=== PATIENT | male | born 1965 | race Two or more races ===

== ENCOUNTER 2017-09-15 00:47 | Emergency (ER) | payer OTHER ==
[~2017-09-15] VITALS: Ht 177.8 cm; Wt 76.2 kg
[~2017-09-15 00:47] MED LIST: AZITHROMYCIN250 MG PO; CEFADROXIL500 MG PO; CLONAZEPAM0.5 MG PO; DICLOFENAC POTA50 MG; GABAPENTIN100 MG; TUSSI-PRES LIQ120 ML PO
[2017-09-15] MEDS ORDERED: CALTRATE 600+D1 EACH PO (03:34)
== END 2017-09-15 03:40 | disposition home or self-care (01) ==
LOC: ER 00:47
DX: F41.9 Anxiety disorder, unspecified (principal); T47.2X5A Adverse effect of stimulant laxatives, initial encounter; Y92.89 Other specified places as the place of occurrence of the external cause; E83.51 Hypocalcemia

== ENCOUNTER 2018-10-13 21:45 | Emergency (ER) | payer OTHER ==
[~2018-10-13] VITALS: Ht 177.8 cm; Wt 80.7 kg
[~2018-10-13 21:45] MED LIST changes: +CALTRATE 600+D1 EACH PO
[2018-10-14] MEDS ORDERED: SKELAXIN800 MG PO (00:16)
[2018-10-14] MEDS ORDERED: NABUMETONE750 MG PO (00:16)
[2018-10-14] MEDS ORDERED: MEDROLPACK PO (00:16)
== END 2018-10-14 00:54 | disposition home or self-care (01) ==
LOC: ER 21:45
DX: M77.12 Lateral epicondylitis, left elbow (principal)

== ENCOUNTER 2020-02-25 21:40 | Emergency (ER) | payer OTHER ==
[~2020-02-25] VITALS: Ht 177.8 cm; Wt 77.1 kg
[~2020-02-25 21:40] MED LIST changes: +MEDROLPACK PO; +NABUMETONE750 MG PO; +SKELAXIN800 MG PO
== END 2020-02-25 23:46 | disposition home or self-care (01) ==
LOC: ER 21:40
DX: H92.01 Otalgia, right ear (principal)

== ENCOUNTER 2021-01-01 11:45 | Outpatient (CLI) | payer OTHER | END 2021-01-01 12:00 | disposition home or self-care (01) | LOC: MRI 11:45 | PROVIDERS: ATTEND Orthopaedic Surgery | DX: S83.242A Other tear of medial meniscus, current injury, left knee, initial encounter (principal); M25.761 Osteophyte, right knee; M25.562 Pain in left knee | CPT/HCPCS: 73721 ==

== ENCOUNTER 2021-01-05 13:24 | Emergency (ER) | payer OTHER ==
[~2021-01-05] VITALS: Ht 177.8 cm; Wt 79.8 kg
[2021-01-05] MEDS ORDERED: PERCOCET 5-3251 EACH PO (16:32)
[2021-01-05] MEDS ORDERED: CYCLOBENZAPRINE10 MG PO (16:32)
[2021-01-05] MEDS ORDERED: DICLOFENAC POTA50 MG PO (16:32)
== END 2021-01-05 16:44 ==
LOC: ER 13:24
DX: S20.211A Contusion of right front wall of thorax, initial encounter (principal); S40.021A Contusion of right upper arm, initial encounter; M79.601 Pain in right arm; W18.09XA Striking against other object with subsequent fall, initial encounter; Y93.89 Activity, other specified; Y92.091 Bathroom in other non-institutional residence as the place of occurrence of the external cause; Y99.8 Other external cause status

== ENCOUNTER 2021-08-29 14:20 | Emergency (ER) | payer OTHER ==
[~2021-08-29] VITALS: Ht 177.8 cm; Wt 78.0 kg
[~2021-08-29 14:20] MED LIST changes: +CYCLOBENZAPRINE10 MG PO; +DICLOFENAC POTA50 MG PO; +PERCOCET 5-3251 EACH PO
== END 2021-08-29 18:39 | disposition home or self-care (01) ==
LOC: ER 14:20
DX: R07.89 Other chest pain (principal)

== ENCOUNTER 2022-02-24 15:53 | Emergency (ER) | payer OTHER ==
[~2022-02-24] VITALS: Ht 177.8 cm; Wt 77.1 kg
== END 2022-02-24 23:30 | disposition home or self-care (01) ==
LOC: ER 15:53
DX: T17.208A Unspecified foreign body in pharynx causing other injury, initial encounter (principal); X58.XXXA Exposure to other specified factors, initial encounter; Y93.9 Activity, unspecified; Y92.9 Unspecified place or not applicable; Y99.9 Unspecified external cause status

== ENCOUNTER 2022-02-25 18:59 | Emergency (ER) | payer OTHER ==
[~2022-02-25] VITALS: Ht 177.8 cm; Wt 77.1 kg
[2022-02-26] MEDS ORDERED: PEPCID40 MG PO (03:04)
[2022-02-26] MEDS ORDERED: MIRALAX510 GM PO (03:04)
[2022-02-26] MEDS ORDERED: PROTONIX40 M1 PO (03:04)
== END 2022-02-25 20:08 | disposition home or self-care (01) ==
LOC: ER 18:59
DX: R07.0 Pain in throat (principal)

== ENCOUNTER 2022-02-26 00:34 | Emergency (ER) | payer OTHER ==
[~2022-02-26] VITALS: Ht 177.8 cm; Wt 72.6 kg
[2022-02-26] MEDS ORDERED: PEPCID40 MG PO (03:04)
[2022-02-26] MEDS ORDERED: PROTONIX40 M1 PO (03:04)
[2022-02-26] MEDS ORDERED: MIRALAX510 GM PO (03:04)
== END 2022-02-26 03:17 ==
LOC: ER 00:34
DX: K21.9 Gastro-esophageal reflux disease without esophagitis (principal)

== ENCOUNTER 2022-04-26 14:52 | Emergency (ER) | payer OTHER ==
[~2022-04-26] VITALS: Ht 177.8 cm; Wt 77.1 kg
[~2022-04-26 14:52] MED LIST changes: +MIRALAX510 GM PO; +PEPCID40 MG PO; +PROTONIX40 M1 PO
[2022-04-26] MEDS ORDERED: LOSARTAN POTASS25 MG PO (15:23)
[2022-04-26] MEDS ORDERED: ATORVASTATIN CA20 MG PO (15:23)
== END 2022-04-26 19:13 | disposition home or self-care (01) ==
LOC: ER 14:52
DX: B34.9 Viral infection, unspecified (principal); R51.9 Headache, unspecified; I10 Essential (primary) hypertension; Z20.822 Contact with and (suspected) exposure to COVID-19

== ENCOUNTER 2022-06-02 15:47 | Emergency (ER) | payer OTHER ==
[~2022-06-02] VITALS: Ht 177.8 cm; Wt 77.1 kg
[~2022-06-02 15:47] MED LIST changes: +ATORVASTATIN CA20 MG PO; +LOSARTAN POTASS25 MG PO
== END 2022-06-02 19:40 | disposition home or self-care (01) ==
LOC: ER 15:47
DX: K21.9 Gastro-esophageal reflux disease without esophagitis (principal); I10 Essential (primary) hypertension

== ENCOUNTER 2022-11-20 14:05 | Emergency (ER) | payer OTHER ==
[~2022-11-20] VITALS: Ht 177.8 cm; Wt 86.2 kg
[2022-11-20] MEDS ORDERED: GABAPENTIN300 M2 PO (14:50)
== END 2022-11-20 20:24 | disposition left against medical advice (07) ==
LOC: ER 14:05
DX: Z53.21 Procedure and treatment not carried out due to patient leaving prior to being seen by health care provider (principal)

== ENCOUNTER 2023-11-04 12:14 | Emergency (ER) | payer OTHER ==
[~2023-11-04] VITALS: Ht 177.8 cm; Wt 86.2 kg
[~2023-11-04 12:14] MED LIST changes: +GABAPENTIN300 M2 PO
[2023-11-04] MEDS ORDERED: cloNIDine HCL 0.2 MG TABLET PO ONE (13:15)
[2023-11-04] MEDS ORDERED: LORazepam 1 MG TABLET PO ONE (13:15)
[2023-11-04] MEDS ORDERED: CLONIDINE HCL 0.1 MG TABLET PO ONE (13:15)
== END 2023-11-04 14:43 | disposition home or self-care (01) ==
LOC: ER 12:15
DX: F41.9 Anxiety disorder, unspecified (principal); I10 Essential (primary) hypertension

== ENCOUNTER 2023-11-12 19:39 | Emergency (ER) | payer OTHER ==
[~2023-11-12] VITALS: Ht 177.8 cm; Wt 86.2 kg
[2023-11-13 00:02] LABS: HEMATOCRIT 43.3 % (39.0-48.0); HEMOGLOBIN 14.9 g/dL (13-16.00); MEAN CORPUSCULAR HEMOGLOBIN 29.6 pg (27.00-32.0); MEAN CORPUSCULAR HGB CONC 34.5 g/dl (32.0-36.0); PLATELET COUNT 241 K/uL (150-450); RED BLOOD COUNT 5.03 M/uL (4.00-6.00); RED CELL DISTRIBUTION WIDTH 13.8 % (11.5-14.5)
[2023-11-13 00:56] LABS: CALCIUM 9.3 mg/dL (8.5-10.1); CREATININE SERUM 0.96 mg/dL (0.70-1.30); GFR 81.02; POTASSIUM 3.94 mEq/L (3.5-5.1)
== END 2023-11-13 01:24 | disposition home or self-care (01) ==
LOC: ER 19:40
PROVIDERS: General Practice
DX: J06.9 Acute upper respiratory infection, unspecified (principal); I10 Essential (primary) hypertension; Z20.822 Contact with and (suspected) exposure to COVID-19; Z91.013 Allergy to seafood

== ENCOUNTER 2024-08-07 14:23 | Emergency (ER) | payer OTHER ==
[~2024-08-07] VITALS: Ht 180.3 cm; Wt 86.2 kg
[2024-08-07] MEDS ORDERED: BENZONATATE 200 MG CAPSULE PO STA (15:52)
[2024-08-07] MEDS ORDERED: METHYLPREDNISOLONE SOD SUCC 125 MG in 0.9 % SODIUM CHLORIDE 100 ML IV STA (15:53)
[2024-08-07] MEDS ORDERED: IPRATROPIUM BROMIDE 0.5 MG/2.5 ML AMPUL.NEB IH STA (15:54)
[2024-08-07] MEDS ORDERED: LEVALBUTEROL HCL 1.25 MG/3 ML SOLUTION IH STA (15:54)
[2024-08-07] MEDS ORDERED: METHYLPREDNISOLONE SOD SUCC 125 MG VIAL ONE (16:41)
[2024-08-07] MEDS ORDERED: IPRATROPIUM BROMIDE 0.5 MG/2.5 ML AMPUL.NEB IH ONE (17:11)
[2024-08-07] MEDS ORDERED: LEVALBUTEROL HCL 1.25 MG/3 ML SOLUTION IH ONE (17:11)
[2024-08-07 17:23] LABS: HEMATOCRIT 41.1 % (39.0-48.0); HEMOGLOBIN 14.5 g/dL (13-16.00); MEAN CELL VOLUME 85.3 fL (80.0-100.00); MEAN CORPUSCULAR HEMOGLOBIN 30.1 pg (27.00-32.0); MEAN CORPUSCULAR HGB CONC 35.2 g/dl (32.0-36.0); PLATELET COUNT 226 K/uL (150-450); RED BLOOD COUNT 4.82 M/uL (4.00-6.00); RED CELL DISTRIBUTION WIDTH 13.6 % (11.5-14.5)
[2024-08-07 17:41] LABS: INFLUENZA A AG NEGATIVE (NEGATIVE)
[2024-08-07 17:53] LABS: ALBUMIN 3.8 gm/dL (3.4-5.0); BILIRUBIN TOTAL 0.41 mg/dL (0.3-1.2); CALCIUM 9.4 mg/dL (8.5-10.1); CREATININE SERUM 0.95 mg/dL (0.70-1.30); GFR 82.01; GLOBULINA 3.6 G/DL (2.4-3.5); POTASSIUM 3.73 mEq/L (3.5-5.1); TOTAL PROTEIN 7.4 gm/dL (6.4-8.2)
[2024-08-07 18:00] LABS: COVID-19 AG NEGATIVE (NEGATIVE)
[2024-08-07] MEDS ORDERED: BENZONATATE200 M1 PO (19:00)
== END 2024-08-07 19:32 | disposition home or self-care (01) ==
LOC: ER 14:23
PROVIDERS: General Practice
DX: B34.9 Viral infection, unspecified (principal); R51.9 Headache, unspecified; I10 Essential (primary) hypertension; Z20.822 Contact with and (suspected) exposure to COVID-19; Z91.013 Allergy to seafood